=== PATIENT | male | born 1965 | race Asian ===

== ENCOUNTER 2017-03-12 17:21 | Emergency (ER) | payer OTHER ==
[~2017-03-12] VITALS: Ht 167.6 cm; Wt 69.2 kg
[2017-03-12 17:38] VITALS: BP 136/74
[2017-03-12] MEDS ORDERED: LIDOCAINE 1% 500 MG/50 ML VIAL INJ SCH (18:35)
[2017-03-12] MEDS ORDERED: LIDOCAINE MPF 1% 50 MG/5 ML VIAL ONE (18:50)
--- NOTE | 2017-03-12 19:00 | NUR ---
ABCESS UNDER LEFT AXILLA X 10 DAYS PT STATES HE HAS THIS RECURRING PROBLEM FOR FEW YEARS. SKIN INTACT, NO REDNESS OR BLEEDING NOTED AT THIS TIME.
[2017-03-12 19:39] VITALS: BP 135/76
--- NOTE | 2017-03-12 19:40 | NUR ---
Patient discharged with v/s stable. Written and verbal after care instructions given and explained. Patient alert, oriented and verbalized understanding of instructions. Ambulatory with steady gait. All questions addressed prior to discharge. ID band removed. Patient advised to follow up with PMD. Rx of IBUPROFEN, BACTROBAN, CEPHALEXIN given. Patient educated on indication of medication including possible reaction and side effects. Opportunity to ask questions provided and answered.
== END 2017-03-12 19:40 | disposition home or self-care (01) ==
LOC: EEVIPCON 17:21 → MED 17:21
DX: L72.3 Sebaceous cyst (principal); E11.9 Type 2 diabetes mellitus without complications; Z79.84 Long term (current) use of oral hypoglycemic drugs; Z79.899 Other long term (current) drug therapy
CPT/HCPCS: 10060; 99283; J2001

== ENCOUNTER 2017-03-22 08:52 | Outpatient (CLI) | payer OTHER ==
[2017-03-22 09:43] LABS: ANION GAP 12.8 (8-16); CARBON DIOXIDE 29.6 mmol/L (21-32); CHOL/HDL RATIO 3.8 (1-4.5); CREATININE 1.2 mg/dL (0.7-1.3); POTASSIUM 4.4 mmol/L (3.5-5.1); TOTAL BILIRUBIN 0.3 mg/dL (0.0-1.0)
[2017-03-23 12:23] LABS: MICROALBUMIN, UR RANDOM 3.6 ug/mL (Not Estab.)
== END 2017-03-22 20:33 | disposition home or self-care (01) ==
LOC: MLB 08:52
PROVIDERS: ATTEND Family Medicine Geriatric Medicine
DX: Z12.5 Encounter for screening for malignant neoplasm of prostate (principal); E11.22 Type 2 diabetes mellitus with diabetic chronic kidney disease; N18.2 Chronic kidney disease, stage 2 (mild); E78.2 Mixed hyperlipidemia
CPT/HCPCS: 36415; 80053; 82043; 82570; 83036; 84154